=== PATIENT | female | born 1970 | race Caucasian/White ===

== ENCOUNTER 2017-06-24 20:09 | Emergency (ER) | payer OTHER ==
[~2017-06-24] VITALS: Ht 160 cm; Wt 66.8 kg
[~2017-06-24 20:09] MED LIST: MECL25CH PO
[2017-06-24 20:15] VITALS: BP 156/82; PULSE 84; RESP 16; TEMP 98.6; O2SAT 96
--- NOTE | 2017-06-24 21:16 | PD ---
HPI Chief Complaint: ENT Complaint Time Seen by Provider: 21:14 Travel History International Travel<30 days: No Contact w/Intl Traveler<30days: No Traveled to known affect area: No History of Present Illness HPI The patient is a 46-year-old female that complains of bilateral ear pain for one week. The patient states she thinks she has a perforation in her left tympanic membrane because she has not been able to hear out of that ear for a well for years. The patient denies any drainage from either ear. She has tenderness over both fingers. She denies any fever. The patient smokes one pack a day and has a chronic cough for about 2 months. She states she starts coughing when she lies down, she is not usually when she is in the upright position. PFSH Past Medical History Diminished Hearing: No Diverticulitis: Yes Herniated Disk: Yes (SLIPPED DISC) Menopausal: Yes Past Surgical History Appendectomy: Yes Other Surgery: Yes (LT KNEE AND RIGHT FOOT) Social History Alcohol Use: Yes (SOCIALLY) Tobacco Use: Yes (1 PPD) Substance Use: No Allergies-Medications (Allergen,Severity, Reaction): Coded Allergies: No Known Allergies (Unverified , 06/24/17) Reported Meds & Prescriptions Reported Meds & Active Scripts Active Review of Systems Except as stated in HPI: all other systems reviewed are Neg Physical Exam Narrative GENERAL: Well-nourished, well-developed patient in moderate apparent distress with her bilateral ear pain. Her vital signs show blood pressure 156/82 but otherwise normal. SKIN: Focused skin assessment warm/dry. HEAD: Normocephalic. EYES: No scleral icterus. No injection or drainage. NECK: Supple, trachea midline. No JVD or lymphadenopathy. CARDIOVASCULAR: Regular rate and rhythm without murmurs, gallops, or rubs. RESPIRATORY: Breath sounds equal bilaterally. No accessory muscle use. GASTROINTESTINAL: Abdomen soft, non-tender, nondistended. MUSCULOSKELETAL: No cyanosis, or edema. BACK: Nontender without obvious deformity. No CVA tenderness. ENT: Both canals are red and there is wax in both canals which prevents me from visualizing the tympanic membranes. Both canals are exquisitely tender and the patient could not tolerate removal of wax using a curette. Data Data Last Documented VS Vital Signs Date Time Temp Pulse Resp B/P Pulse Ox O2 Delivery O2 Flow Rate FiO2 06/24/17 21:38 20 06/24/17 20:15 98.6 84 156/82 96 Orders Ear Irrigation (06/24/17 21:39) Cfxojlzk-Xnhjodjw-Oj Otic Soln (Cortispo (06/24/17 22:00) Acetamin-Hydrocod 325-7.5 Mg ([place] 7.5 (06/24/17 22:15) MDM Medical Decision Making Medical Screen Exam Complete: Yes Emergency Medical Condition: Yes Medical Record Reviewed: Yes Differential Diagnosis Otitis media, otitis externa, ear canal abscess, perforated tympanic membrane Narrative Course The patient has bilateral otitis externa. After irrigating the right ear the tympanic membrane on the right can be seen and appears normal. The left tympanic membrane cannot be seen due to canal swelling and wax. Plan: The patient be given Cortisporin otic dropssolution 4 drops 4 times daily. She needs to follow-up with her primary care physician or and museum security chief next week. Procedures Procedure Narrative Both ears were irrigated and the right canal was clean so that the right tympanic membrane was seen. The left canal is swollen and still has wax. The patient could not tolerate any more irrigation. There is still some wax left in the left ear. The left tympanic membrane cannot be seen. Diagnosis Primary Impression: Acute infective otitis externa of both ears Additional Impression: Impacted cerumen of both ears Additional Instructions: The eardrops are used 4 times daily in each ear. You can actually use them more often than that. Follow-up with an museum security chief or your primary care physician next week. Med/Other Pt SpecificInfo: Prescription(s) given Scripts Hydrocodone-Acetaminophen (Lortab)5-325 Mg Tab1 Tab PO Q4H PRN (PAIN) #30 TAB Ref 0 Prov:Joaquin Hardy MD 06/24/17 Kzveesxw-Bczcukqkj-RT Otic Drops 3.5-10,000-1 Mg-Units-% Soln4 Drop EACH EAR QID #1 BOTTLE Ref 0 Prov:Joaquin Hardy MD 06/24/17 Disposition: 01 DISCHARGE HOME Condition: Stable Joaquin Hardy MD Jun 24, 2017 21:16
[2017-06-24] MEDS ORDERED: NEOMYCIN/POLYMYXIN/HYDROCORT OTIC SOLN 10 ML BTL EACH EAR ONE (22:00)
[2017-06-24] MEDS ORDERED: ACETAMINOPHEN/HYDROcodone 325 MG/7.5 MG TAB PO ONE (22:15)
[2017-06-24] MEDS ORDERED: HYDR-3533 PO (22:16)
[2017-06-24] MEDS ORDERED: NEOM1SOL7 EACH EAR (22:16)
[2017-06-24 22:42] VITALS: BP 142/74
== END 2017-06-24 23:11 | disposition home or self-care (01) ==
LOC: PHED 20:09
DX: H60.393 Other infective otitis externa, bilateral (principal); H61.23 Impacted cerumen, bilateral; R05 Cough; F17.200 Nicotine dependence, unspecified, uncomplicated; Z87.19 Personal history of other diseases of the digestive system; Z87.39 Personal history of other diseases of the musculoskeletal system and connective tissue
CPT/HCPCS: 99283